=== PATIENT | female | born 1985 | race Caucasian/White ===

== ENCOUNTER 2016-12-24 23:03 | Emergency (ER) | payer SELFPAY ==
[~2016-12-24] VITALS: Ht 154.9 cm; Wt 62.1 kg
[2016-12-24 23:05] VITALS: BP_SYST 90
[2016-12-25 00:04] LABS: BILIRUBIN,URINE NEGATIVE (NEGATIVE); CLARITY/URINE CLOUDY (CLEAR); COLOR,URINE YELLOW (YELLOW); GLUCOSE,URINE NEGATIVE (NEGATIVE); KETONES,URINE NEGATIVE (NEGATIVE); LEUKOCYTE ESTERASE ,URINE 2+ (NEGATIVE); NITRITE, URINE POSITIVE (NEGATIVE); PH,URINE 6.5 (5.0-8.0); PROTEIN URINE NEGATIVE (NEGATIVE); UROBILINOGEN,URINE 0.2 (0.2-1.0)
[2016-12-25 00:05] LABS: BLOOD, URINE TRACE (NEGATIVE)
[2016-12-25 00:08] LABS: BACTERIA,URINE MANY /HPF (None Seen); MUCUS,URINE None Seen /LPF (None Seen); WBC,URINE 50-80 /HPF (0-3)
== END 2016-12-25 00:20 | disposition left against medical advice (07) ==
LOC: SED 23:03
DX: F48.9 Nonpsychotic mental disorder, unspecified (principal); Z53.20 Procedure and treatment not carried out because of patient's decision for unspecified reasons; Z88.6 Allergy status to analgesic agent
CPT/HCPCS: 81000-TC; 81025; 87086; 87186-TC; 99284